=== PATIENT | female | born 1980 | race Caucasian/White ===

== ENCOUNTER 2019-05-30 09:08 | Emergency (ER) | payer OTHER ==
--- NOTE | 2019-05-30 10:08 | UC ---
UC General HPI - HPI Summary HPI Summary: Patient is a 39-year-old female presenting with complaint of lower back pain 7- 10 days, left foot pain for the last few years, and desire for STI testing today. Patient states she believed she hurt her back while lifting furniture over a week ago. Describes pain as dull lower back pain that "feels really tight." Notes worse with standing and ambulation. Denies incontinence. Denies radiating pain. Denies urinary symptoms. Denies numbness and tingling. Patient notes left foot pain and left 4th toe has been going on for years and it feels like "it is on fire." Denies h/o gout. Denies erythema, edema, ecchymosis. Denies injury. States that it is happening more often almost every day now. States it is episodic and lasts for 5-10 minutes. Patient also states that she is concerned for STI because she believes her "boyfriend has not been faithful." Notes more discharge than usual. Denies abnormal consistency, color, odor. Denies burning and itching. Denies abdominal pain. Denies hearing chills. - History of Current Complaint Stated Complaint: BACK PAIN,LEFT FOOT COMPLAINT Hx Obtained From: Patient Hx Last Menstrual Period: 12/24/13 - Allergy/Home Medications Allergies/Adverse Reactions: Allergies Allergy/AdvReac Type Severity Reaction Status Date / Time azithromycin Allergy Severe Difficulty Verified 05/30/19 09:42 Breathing nitrofurantoin Allergy Unknown Verified 05/30/19 09:42 [From Macrobid] Reaction Details Home Medications: Home Medications Ibuprofen TAB* [Motrin TAB* 800 MG] 800 mg PO Q24H PRN 05/30/19 [History Confirmed 05/30/19] PMH/Surg Hx/FS Hx/Imm Hx - Surgical History Surgical History: Yes Surgery Procedure, Year, and Place: L ovary removal. endometriosis. exploritory - Family History Known Family History: Positive: Unknown - Social History Alcohol Use: Occasionally Substance Use Type: None Smoking Status (MU): Current Every Day Smoker - Immunization History Most Recent Tetanus Shot: 2008 Review of Systems All Other Systems Reviewed And Are Negative: Yes Constitutional: Positive: Negative Skin: Negative: Bruising Respiratory: Positive: Negative Cardiovascular: Positive: Negative Gastrointestinal: Positive: Negative Genitourinary: Positive: Negative Neurovascular: Positive: Negative Musculoskeletal: Positive: Arthralgia - left foot and 4th toe, Myalgia - lower back. Negative: Decreased ROM, Edema Neurological: Positive: Negative. Negative: Weakness, Paresthesia, Numbness Physical Exam Triage Information Reviewed: Yes Appearance: Well-Appearing, No Pain Distress, Well-Nourished Vital Signs: Vital Signs (72 hours) 05/30/19 05/30/19 09:45 12:04 Temperature 99.4 F 98.3 F Pulse Rate 95 80 Respiratory 20 18 Rate Blood Pressure 113/78 113/70 (mmHg) O2 Sat by Pulse 100 99 Oximetry Lab Results 05/30/19 Range/Units 10:28 POC Urine Color Yellow POC Urine Clarity Slightly cloudy POC Urine pH 5.5 (5-9) POC Ur Specif [place] >= 1.030 (1.010-1.030) POC Urine Protein Trace A (Negative) POC Ur Glucose (UA) Negative (Negative) POC Urine Ketones Negative (Negative) POC Urine Blood Trace-intact A (Negative) POC Urine Nitrite Negative (Negative) POC Urine Bilirubin Negative (Negative) POC Urine Urobilinogen 0.2 (Negative) POC U Leukocyte Esteras 1+ A (Negative) Vital Signs Reviewed: Yes Eyes: Positive: Conjunctiva Clear ENT: Positive: Hearing grossly normal Neck exam: Normal Neck: Positive: Supple Respiratory Exam: Normal Respiratory: Positive: Lungs clear, Normal breath sounds, No respiratory distress Cardiovascular Exam: Normal Cardiovascular: Positive: RRR Musculoskeletal: Positive: Strength Intact, No Edema, ROM Limited @ - hip flexion due to pain, Other: - tenderness to palpation of lumbar paraspinous muscles. L foot and 4th toe without tenderness or deformity Neurological Exam: Other - sensation grossly intact Neurological: Positive: Alert Psychological: Positive: Age Appropriate Behavior Skin Exam: Normal - no erythema or ecchymosis Diagnostics - Radiology lumbar Radiology Interpretation Completed By: Radiologist Summary of Radiographic Findings: Indication: Back pain. 3 views of lumbar spine demonstrates straightening of the normal lordosis. Disc spaces all well- preserved. Pedicles appear intact. IMPRESSION: No fracture of the lumbar spine is noted. L foot Radiology Interpretation Completed By: Radiologist Summary of Radiographic Findings: FINDINGS: The bones are in normal alignment. No fracture is seen. Joint spaces appear maintained. IMPRESSION: NO EVIDENCE FOR FRACTURE. Course/Dx - Course Course Of Treatment: UA positive for blood and leukocyte esterase, however patient is asymptomatic so I am not treating for infection. Discussed lordosis straightening and likely back muscle strain for which I prescribed flexeril and instructed to continue with symptomatic treatment. Patient foot xray normal and discussed to follow up with physician referral if pain persists. Patient received STI testing today. She declined pelvic exam. I informed her she will be notified only with positive results. Patient voiced understanding and agreed with treatment plan. - Diagnoses Provider Diagnosis: Spasm of muscle of lower back, Chronic toe pain, left foot, Chronic pain in left foot, Screen for sexually transmitted diseases Discharge ED - Sign-Out/Discharge Documenting (check all that apply): Patient Departure All imaging exams completed and their final reports reviewed: Yes - Discharge Plan Condition: Stable Disposition: HOME Prescriptions: Cyclobenzaprine TAB* [Flexeril 10 MG TAB*] 10 mg PO BEDTIME PRN #10 tab PRN Reason: Spasms - Muscle Patient Education Materials: Cyclobenzaprine (By mouth), Sexually Transmitted Diseases (ED), Low Back Strain (ED), Arthralgia (ED) Referrals: [facility] [Outside] [facility] [Outside] - If Needed Additional Instructions: The xrays of your back and foot were read as normal today. It is likely you strain your lower back. Take 10mg of flexeril at bedtime for spasms. This medication may make you feel drowsy, so do not drive or operate heavy machinery while taking it. Continue with heat, stretching, and ibuprofen as directed for pain relief. You received testing for yeast, bacterial vaginosis, trichomonas, gonorrhea, chlamydia, syphilis, and HIV today. You will be notified only with positive results. Follow up with the Physician Referral or [facility] listed if any of your symptoms that you were seen for today do not resolve. - Billing Disposition and Condition Condition: STABLE Disposition: Home
[2019-05-30] MEDS ORDERED: Ibuprofen TAB* 600 MG PO ONE (11:53)
[2019-05-30 12:06] VITALS: BP 113/70
[2019-05-30 16:26] LABS: HIV 4th Generation Nonreactive (Nonreactive)
[2019-06-02 12:56] LABS: Chlamydia trachomatis NAA Negative (Negative); Neisseria gonorrhoeae (GC) NAA Negative (Negative)
== END 2019-05-30 12:18 | disposition home or self-care (01) ==
LOC: UCCORT 09:08
DX: Z11.3 Encounter for screening for infections with a predominantly sexual mode of transmission (principal); M25.572 Pain in left ankle and joints of left foot; M79.675 Pain in left toe(s); M62.830 Muscle spasm of back; G89.29 Other chronic pain; F17.200 Nicotine dependence, unspecified, uncomplicated; Z88.1 Allergy status to other antibiotic agents
CPT/HCPCS: 36415; 72100; 81003; 86780; 87086; 87389; 87480; 87491; 87510; 87591; 87660; 99202; A9270-GY; G0463